=== PATIENT | male | born 1980 | race African-American/Black ===

== ENCOUNTER 2018-07-27 08:50 | Emergency (ER) | payer OTHER ==
[~2018-07-27] VITALS: Ht 165.1 cm; Wt 78.9 kg
[2018-07-27] MEDS ORDERED: TRAZODONE HCL100 MG PO (09:01)
[2018-07-27] MEDS ORDERED: VITAMIN D3400 UNIT PO (09:02)
[2018-07-27] MEDS ORDERED: ZANTAC 150MG T150 MG PO (09:02)
[2018-07-27] MEDS ORDERED: DOXYCYCLINE 10100 MG PO (09:49)
[2018-07-27] MEDS ORDERED: TESSALON PERLE100 MG PO (09:49)
[2018-07-27 10:04] VITALS: BP 118/63
== END 2018-07-27 10:05 | disposition home or self-care (01) ==
LOC: ER 08:50
DX: J18.9 Pneumonia, unspecified organism (principal); I10 Essential (primary) hypertension; G47.00 Insomnia, unspecified; Z87.891 Personal history of nicotine dependence